=== PATIENT | male | born 1965 | race Caucasian/White ===

== ENCOUNTER 2018-01-21 14:36 | Emergency (ER) | payer SELFPAY ==
--- NOTE | 2018-01-21 14:39 | ER Report ---
History and Physical Time Seen By MD: 14:39 HPI/ROS CHIEF COMPLAINT: ALCOHOLIC CONSIDERING REHAB HISTORY OF PRESENT ILLNESS: Pt states "my brother brought me here to stop drinking". Pt states last drink was 20 minutes ago, [place] shot. Pt states he drinks about pint a day for 30 + years. Pt states last time he had a length of sobriety was 15 years ago. Pt states that he is not sure if he can stop. PT denies suicidal or homicidal ideations. pt denies any pain isor recent illness. REVIEW OF SYSTEMS: Constitutional: No fever, no chills. Eyes: No discharge. ENT: No sore throat. Cardiovascular: No chest pain, no palpitations. Respiratory: No cough, no shortness of breath. Gastrointestinal: No abdominal pain, no vomiting. Genitourinary: No hematuria. Musculoskeletal: No back pain. Skin: No rashes. Neurological: No headache. Allergies: Coded Allergies: No Known Drug Allergies (Unverified , 01/21/18) Home Meds No Active Prescriptions or Reported Meds Past Medical/Surgical History Pmhx: alcoholic Pshx: neg Hx Smoking: Yes Smoking Status: Current: Every Day Smoker Hx Substance Use Disorder: Yes (marijuania) Hx Alcohol Use: Yes Constitutional Vital Sign - Last 24 Hours 01/21/18 01/21/18 01/21/18 01/21/18 14:48 14:49 16:30 16:33 Temp 98.5 Pulse 76 Resp 16 B/P (MAP) 106/81 106/81 (89) 99/67 (78) 108/74 (85) Pulse Ox 91 O2 Delivery Room Air Physical Exam General Appearance: The patient is alert, has no immediate need for airway protection and no signs of toxicity. Eyes: Pupils equal and round no pallor or injection, EOMI ENT: no pharyngeal erythema or exudates, Mucous membranes are moist Respiratory: There are no retractions, lungs are clear to auscultation. Cardiovascular: Regular rate and rhythm. pulses are equal and symmetrical Gastrointestinal: Abdomen is soft and non tender, no masses, bowel sounds normal, no guarding, no rigidity or rebound Neurological: Cranial nerves II-XII grossly intact, no sensory or motor loss Skin: Warm and dry, no rashes. Musculoskeletal: Neck is supple non tender, no vertebral tenderness Extremities are nontender, non swollen and have full range of motion. DIFFERENTIAL DIAGNOSIS: After history and physical exam differential diagnosis was considered for electrolyte abnl, dehydration, intoxicated Medical Decision Making Data Points Result Diagram: 01/21/18 1504 01/21/18 1504 Laboratory Hematology Test 01/21/18 14:49 01/21/18 15:04 Urine Color Yellow Urine Clarity Slightly-cloudy Urine pH 6.0 pH (4.8-9.5) Urine Specific Vivian 1.019 Urine Protein Negative mg/dL (NEGATIVE) Urine Glucose (UA) Negative mg/dL (NEGATIVE) Urine Ketones Negative mg/dL (NEGATIVE) Urine Blood Negative (NEGATIVE) Urine Nitrite Negative (NEGATIVE) Urine Bilirubin Negative (NEGATIVE) Urine Urobilinogen Negative mg/dL (0.2-1.9) Urine Leukocyte Esterase Negative (NEGATIVE) Urine RBC <1 /HPF (0-2/HPF) Urine WBC <1 /HPF (0-5/HPF) Urine Squamous Epithelial Cells Few /LPF (</=FEW) Urine Calcium Oxalate Crystals Few /HPF (NONE) Urine Amorphous Crystals Few /HPF Urine Bacteria Negative /HPF (NONE-FEW) Urine Mucus None /HPF (NONE-FEW) Urine Opiates Screen Negative Urine Barbiturates Screen Negative Ur Tricyclic Antidepressants Screen Positive Urine Phencyclidine Screen Negative Urine Amphetamines Screen Negative Urine Benzodiazepines Screen Negative Urine Cocaine Screen Negative Urine Cannabinoids Screen Positive Red Blood Count 3.98 M/uL (4.00-5.60) Mean Corpuscular Volume 94.4 fL (80.0-96.0) Mean Corpuscular Hemoglobin 33.2 pg (26.0-33.0) Mean Corpuscular Hemoglobin Concent 35.2 g/dL (32.0-36.0) Red Cell Distribution Width 15.0 % (11.5-14.5) Mean Platelet Volume 7.4 fL (7.2-11.1) Neutrophils (%) (Auto) 47.9 % (39.4-72.5) Lymphocytes (%) (Auto) 30.7 % (17.6-49.6) Monocytes (%) (Auto) 14.3 % (4.1-12.4) Eosinophils (%) (Auto) 5.7 % (0.4-6.7) Basophils (%) (Auto) 1.4 % (0.3-1.4) Nucleated RBC Relative Count (auto) 0.0 /100WBC Neutrophils # (Auto) 4.7 K/uL (2.0-7.4) Lymphocytes # (Auto) 3.0 K/uL (1.3-3.6) Monocytes # (Auto) 1.4 K/uL (0.3-1.0) Eosinophils # (Auto) 0.5 K/uL (0.0-0.5) Basophils # (Auto) 0.1 K/uL (0.0-0.1) Nucleated RBC Absolute Count (auto) 0.00 K/uL Sodium Level 143 mmol/L (137-145) Potassium Level 4.2 mmol/L (3.5-5.0) Chloride Level 105 mmol/L (98-107) Carbon Dioxide Level 26 mmol/L (22-30) Blood Urea Nitrogen 18 mg/dl (9-21) Creatinine 0.90 mg/dl (0.66-1.25) Glomerular Filtration Rate Calc > 60.0 Random Glucose 98 mg/dl (75-110) Calcium Level 9.5 mg/dl (8.4-10.2) Magnesium Level 1.5 mg/dl (1.7-2.2) Total Bilirubin 0.1 mg/dl (0.2-1.3) Aspartate Amino Transf (AST/SGOT) 56 U/L (0-35) Alanine Aminotransferase (ALT/SGPT) 50 U/L (0-56) Alkaline Phosphatase 54 U/L (0-126) Total Protein 6.6 g/dl (6.3-8.2) Albumin 3.6 g/dl (3.5-5.0) Salicylates Level < 10 mg/L Salicylate Last Dose Date Unknown Acetaminophen Level < 10 ug/ml Serum Alcohol 365 mg/dl Chemistry Test 01/21/18 14:49 01/21/18 15:04 Urine Color Yellow Urine Clarity Slightly-cloudy Urine pH 6.0 pH (4.8-9.5) Urine Specific Vivian 1.019 Urine Protein Negative mg/dL (NEGATIVE) Urine Glucose (UA) Negative mg/dL (NEGATIVE) Urine Ketones Negative mg/dL (NEGATIVE) Urine Blood Negative (NEGATIVE) Urine Nitrite Negative (NEGATIVE) Urine Bilirubin Negative (NEGATIVE) Urine Urobilinogen Negative mg/dL (0.2-1.9) Urine Leukocyte Esterase Negative (NEGATIVE) Urine RBC <1 /HPF (0-2/HPF) Urine WBC <1 /HPF (0-5/HPF) Urine Squamous Epithelial Cells Few /LPF (</=FEW) Urine Calcium Oxalate Crystals Few /HPF (NONE) Urine Amorphous Crystals Few /HPF Urine Bacteria Negative /HPF (NONE-FEW) Urine Mucus None /HPF (NONE-FEW) Urine Opiates Screen Negative Urine Barbiturates Screen Negative Ur Tricyclic Antidepressants Screen Positive Urine Phencyclidine Screen Negative Urine Amphetamines Screen Negative Urine Benzodiazepines Screen Negative Urine Cocaine Screen Negative Urine Cannabinoids Screen Positive White Blood Count 9.7 k/uL (4.5-11.0) Red Blood Count 3.98 M/uL (4.00-5.60) Hemoglobin 13.2 g/dL (14.0-18.0) Hematocrit 37.6 % (42.0-52.0) Mean Corpuscular Volume 94.4 fL (80.0-96.0) Mean Corpuscular Hemoglobin 33.2 pg (26.0-33.0) Mean Corpuscular Hemoglobin Concent 35.2 g/dL (32.0-36.0) Red Cell Distribution Width 15.0 % (11.5-14.5) Platelet Count 182 K/uL (150-450) Mean Platelet Volume 7.4 fL (7.2-11.1) Neutrophils (%) (Auto) 47.9 % (39.4-72.5) Lymphocytes (%) (Auto) 30.7 % (17.6-49.6) Monocytes (%) (Auto) 14.3 % (4.1-12.4) Eosinophils (%) (Auto) 5.7 % (0.4-6.7) Basophils (%) (Auto) 1.4 % (0.3-1.4) Nucleated RBC Relative Count (auto) 0.0 /100WBC Neutrophils # (Auto) 4.7 K/uL (2.0-7.4) Lymphocytes # (Auto) 3.0 K/uL (1.3-3.6) Monocytes # (Auto) 1.4 K/uL (0.3-1.0) Eosinophils # (Auto) 0.5 K/uL (0.0-0.5) Basophils # (Auto) 0.1 K/uL (0.0-0.1) Nucleated RBC Absolute Count (auto) 0.00 K/uL Glomerular Filtration Rate Calc > 60.0 Calcium Level 9.5 mg/dl (8.4-10.2) Magnesium Level 1.5 mg/dl (1.7-2.2) Total Bilirubin 0.1 mg/dl (0.2-1.3) Aspartate Amino Transf (AST/SGOT) 56 U/L (0-35) Alanine Aminotransferase (ALT/SGPT) 50 U/L (0-56) Alkaline Phosphatase 54 U/L (0-126) Total Protein 6.6 g/dl (6.3-8.2) Albumin 3.6 g/dl (3.5-5.0) Salicylates Level < 10 mg/L Salicylate Last Dose Date Unknown Acetaminophen Level < 10 ug/ml Serum Alcohol 365 mg/dl Toxicology Test 01/21/18 14:49 01/21/18 15:04 Urine Opiates Screen Negative Urine Barbiturates Screen Negative Ur Tricyclic Antidepressants Screen Positive Urine Phencyclidine Screen Negative Urine Amphetamines Screen Negative Urine Benzodiazepines Screen Negative Urine Cocaine Screen Negative Urine Cannabinoids Screen Positive Salicylates Level < 10 mg/L Salicylate Last Dose Date Unknown Acetaminophen Level < 10 ug/ml Serum Alcohol 365 mg/dl Urinalysis Test 01/21/18 14:49 Urine Color Yellow Urine Clarity Slightly-cloudy Urine pH 6.0 pH (4.8-9.5) Urine Specific Vivian 1.019 Urine Protein Negative mg/dL (NEGATIVE) Urine Glucose (UA) Negative mg/dL (NEGATIVE) Urine Ketones Negative mg/dL (NEGATIVE) Urine Blood Negative (NEGATIVE) Urine Nitrite Negative (NEGATIVE) Urine Bilirubin Negative (NEGATIVE) Urine Urobilinogen Negative mg/dL (0.2-1.9) Urine Leukocyte Esterase Negative (NEGATIVE) Urine RBC <1 /HPF (0-2/HPF) Urine WBC <1 /HPF (0-5/HPF) Urine Squamous Epithelial Cells Few /LPF (</=FEW) Urine Calcium Oxalate Crystals Few /HPF (NONE) Urine Amorphous Crystals Few /HPF Urine Bacteria Negative /HPF (NONE-FEW) Urine Mucus None /HPF (NONE-FEW) ED Course/Re-evaluation Clinical Indication for ER IV: Hydration, IV Access ED Course check labs 01/21/2018 4:29:40 pm Pts magnesium is low. will replace with a banana bag. 01/21/2018 4:46:31 pm Pt initially was unsure if he wanted to go get help but now states that he wants to be admitted for detox. will have bhs come down to speak with pt. 01/21/2018 5:09:[address] Love who accepts the patient if he decides to stay. Decision to Disposition Date: Jan 21, 2018 Decision to Disposition Time: 17:10 Depart Departure Latest Vital Signs Vital Signs Date Time Temp Pulse Resp B/P (MAP) Pulse Ox O2 Delivery O2 Flow Rate FiO2 01/21/18 16:33 108/74 (85) 01/21/18 14:48 98.5 76 16 91 Room Air Impression: Primary Impression: Alcohol abuse with intoxication Additional Impressions: Hypomagnesemia Cannabis use, unspecified, uncomplicated Condition: Condition Unchanged Disposition: XFER TO [facility] UNIT New Scripts No Active Prescriptions or Reported Meds Problem Qualifiers MANUEL KELLEY DO Jan 21, 2018 14:39
[2018-01-21 15:23] LABS: PLATELET COUNT, AUTOMATED 182 K/uL (150-450)
[2018-01-21] MEDS ORDERED: MULTIVITAMINS(*) 10 ML VIAL 10 ML, THIAMINE HCL(*) 200 MG/2 ML IN 100 MG, FOLIC ACID(*)... IV ONE (16:15)
[2018-01-21] MEDS ORDERED: NICOTINE 21 MG/24 HR PATCH TD ONE (16:30)
[2018-01-21] MEDS ORDERED: LORazepam 2 MG/ML VIAL IVP ONE (17:15)
[2018-01-21 17:30] VITALS: BP 105/70
[2018-01-22] MEDS ORDERED: FOLI-68 PO (16:21)
[2018-01-22] MEDS ORDERED: NICO-218 TD (16:24)
[2018-01-22] MEDS ORDERED: MULT-859 PO (16:24)
[2018-01-22] MEDS ORDERED: THIA100T58 PO (16:25)
== END 2018-01-21 17:45 ==
LOC: ER 14:51
DX: F10.229 Alcohol dependence with intoxication, unspecified (principal); F12.90 Cannabis use, unspecified, uncomplicated; E83.42 Hypomagnesemia
CPT/HCPCS: 36415; 80305; 80320; 80329; 81001; 83735; 84443; 85025; 96365; 96375; 99283; J2060; J3411; J3475; J7030; 82040; 82247; 82310; 82374; 82435; 82565; 82947; 84075; 84132; 84155; 84295; 84450; 84460; 84520

== ENCOUNTER 2018-01-21 17:18 | Inpatient (IN) | payer SELFPAY ==
[~2018-01-21] VITALS: Ht 167.6 cm; Wt 65.3 kg
[2018-01-21] MEDS ORDERED: MAG HYD/AL HYD/SIMETH 30ML UDC PO PRN (17:35)
[2018-01-21 18:10] VITALS: BP 103/80
[2018-01-21 21:21] VITALS: BP 149/98
[2018-01-22 00:18] VITALS: BP 142/76
[2018-01-22] MEDS: DIAZEPAM 10 MG TAB PO PRN ×2 (00:35→06:20)
[2018-01-22] MEDS ORDERED: IBUPROFEN 200 MG TAB PO ONE (05:45)
[2018-01-22] MEDS ORDERED: NICOTINE 21 MG/24 HR PATCH TD SCH (09:00)
[2018-01-22] MEDS ORDERED: MULTIVITAMINS TAB PO SCH (09:00)
[2018-01-22] MEDS ORDERED: FOLIC ACID 1 MG TAB PO SCH (09:00)
[2018-01-22] MEDS ORDERED: THIAMINE HCL 100 MG TAB PO SCH (09:00)
[2018-01-22 09:30] VITALS: BP 141/93
[2018-01-22 13:40] VITALS: BP 141/90
--- NOTE | 2018-01-22 14:46 | HISTORY AND PHYSICAL ---
DATE OF ADMISSION: January 21, 2018 CHIEF COMPLAINT "My brother thought I had a little too much to drink, so I came down." HISTORY OF PRESENT ILLNESS This is the first ever psychiatric or detox admission for this voluntary patient who is a 52-year-old male, currently living in [place], [place]. The patient has a long history of alcohol use disorder over the past 30 years. He has most recently been drinking either a pint a day, or if he does not have alcohol, he will drink a bottle of NyQuil per day. His brother found him to be significantly intoxicated yesterday and apparently has been pushing him to seek rehab treatment, and so his brother brought him to the Emergency Room. In the ER, the patient's blood alcohol level was 365. The patient was treated for low magnesium with banana bag and was voluntarily admitted to [facility] for alcohol detox. On interview today, the patient is stating that he is not interested in rehab treatment at this time, but is willing to stay in the hospital to complete detox. The patient says he has been drinking for 30 years. He did quit for five years, and he started drinking again this past November. 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 He then moved back to [place] where he lives in his camper on the property of a friend's home. The patient says that he would go to rehab, but he has bills and would prefer to go back to [place] and get back to work so he can pay his bills. The patient does state that he has attended AA meetings in [place] in the past, and he intends to return to these. PAST PSYCHIATRIC HISTORY Negative. He has never had any outpatient treatment, nor has he ever had a detox or a rehab admission. FAMILY PSYCHIATRIC HISTORY His father was an alcoholic, and his brother abuses marijuana. There is no other family psychiatric history known. PAST SURGICAL HISTORY * He has had arthroscopic knee surgery in the distant past. * PAST MEDICAL HISTORY * He suffers from seasonal allergies. SOCIAL HISTORY He was born and raised in [place], [place]. His parents were at the time of his . They when he was about [age] years old. He has three brothers, one sister, and two half-sisters. He is a high school graduate. He has never served in the . He has had no college. 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 He denies any history of physical or sexual abuse. LEGAL HISTORY He has had three DUIs in his lifetime and was once charged with trespassing. He has never spent time in shelter. He does have an upcoming court appearance in [place] in the future due to a recent DUI in November. SUBSTANCE ABUSE HISTORY The patient has been a fairly heavy drinker for 30 years. He did have one five- year period of sobriety. The patient also uses marijuana occasionally, but alcohol is his drug of choice. The patient is a heavy cigarette smoker. PHYSICAL EXAMINATION Please see the emergency room physician's report. VITAL SIGNS: Temperature 99.5, pulse 75, respiratory rate 18, blood pressure 103/80, pulse ox is 96% on 2L by nasal cannula. LABORATORY DATA CBC: Hemoglobin 13.2, low. Hematocrit 37.6, low. Platelet count 182. MCV 94.4. Chemistry panel is within normal limits other than a magnesium which was low at 1.5. This was replaced in the Emergency Room. Total bilirubin is low at 0.1. AST is slightly elevated at 56. ALT is normal at 50. TSH is pending. Urinalysis is within normal limits. Tox screen is negative for salicylates, negative for acetaminophen, positive for tricyclics, and positive for cannabinoids. Tricyclics are likely explained by the NyQuil. Serum alcohol was 365. MENTAL STATUS EXAMINATION The patient was mildly disheveled. He was cooperative and displayed good eye contact. He did not appear to be tremulous or showing any evidence of alcohol withdrawal at the time of our interview. Speech was normal in rate, tone, and volume. Mood and affect were euthymic. Thought process was logical and goal directed. Thought content was negative for suicidal ideation, homicidal ideation, auditory hallucinations, visual hallucinations, and delusions. He was alert and fully oriented to person, place, time, and situation. Memory was intact for immediate, recent, and remote recall. Intelligence was average based on interview. Insight and judgment are fair. ASSESSMENT * Alcohol use disorder, severe. * Specific substance use disorder, severe, specifically NyQuil. * Nicotine use disorder, severe. PLAN He will be admitted to [facility]. He will be maintained on a CIWA protocol, using Valium to treat any withdrawal symptoms. He will attend individual and group therapy. Medications will be adjusted as indicated. We have encouraged the patient to consider rehab admission, and we spent time today educating him about the availability of rehab here in [place], even for patients who think that they cannot afford it, and he will give this consideration. [*] OSWALDOD
[2018-01-22] MEDS ORDERED: FOLI-68 PO (16:21)
[2018-01-22] MEDS ORDERED: NICO-218 TD (16:24)
[2018-01-22] MEDS ORDERED: MULT-859 PO (16:24)
[2018-01-22] MEDS ORDERED: THIA100T58 PO (16:25)
[2018-01-22 17:25] VITALS: BP 149/94
--- NOTE | 2018-01-23 15:50 | BHS Discharge Summary ---
[facility] Discharge Summary [id number] Encounter Date: Jan 22, 2018 Tptj-[id number] Encounter Time: 16:00 Reason-Hosp/Final Diag (DSM-V): (1) Alcohol abuse with intoxication Status: Acute Hospital Course & Plan: Pt was admitted for alcohol and nyquil abuse, for a detox. He never scored very high on the CIWA during the less than 24 hours he was here. He did receive valium 20 mg the first night at bedtime, he received valium 10 early in the morning of 01/22. He was cooperative, never a problem, and was never particularly ill-appearing. When we met in the morning for his intake he explained that he did not want to transfer to a rehab facility after detox. He agreed at first to stay over night to make sure CIWA scores remained low, but by that evening he was requesting discharge and a friend came to pick him up. (2) Cannabis use, unspecified, uncomplicated Status: Acute Physical Exam Latest Vital Signs Vital Signs 01/22/18 01/22/18 00:18 17:25 Temp 98.6 Pulse 62 Resp 18 B/P (MAP) 149/94 (112) Pulse Ox 97 O2 Delivery Room Air O2 Flow Rate 2.0 Mental Status Exam General Appearance: Casual, Well Groomed, Good Eye Contact, Cooperative, Polite , Good Interaction Speech: Clear, Spontaneous, Normal Rate, Normal Rhythm, Normal Volume, Normal Tone Mood: Euthymic Affect: Full and Appropriate, Calm Thought Process: Organized, Logical, Goal Directed Thought Content: No Suicidal Ideation, No Homicidal Ideation, No Delusions, No Auditory Halllucinations, No Visual Hallucinations, No Thought Broadcasting, No Ideas of Reference, No Obsessions, No Compulsions, No Other Sensorium: Clear Cognition: Alert & Oriented-Person, Alert & Oriented-Place, Alert & Oriented- Time, [id number] Memory: Immediate, Recent, Remote Intelligence: Average Insight Judgment: Fair Departure Condition: Improved Discharge to: Home Discharge Instructions Home Meds Reported Medications Thiamine Hcl (VITAMIN B-1) 100 Mg Tablet, 100 MG PO DAILY 01/22/18 Multivits,Ca,Minerals/Iron/Fa (THERA-M TABLET) 1 Each Tablet, 1 EACH PO DAILY 01/22/18 Nicotine (NICODERM CQ) 1 Each Patch.td24, 1 EACH TD DAILY 01/22/18 Folic Acid (FOLIC ACID) 1 Mg Tablet, 1 MG PO QDAY, TAB 01/22/18 Multpiple Antipsychotics Used: No Diet: Regular Special Instructions: Discharge home. Follow up with outpatient therapy and AA. ABSTAIN FROM ALCOHOL AND ALL ILLICIT. MARIELA THOMAS MD Jan 23, 2018 15:50
== END 2018-01-22 18:42 | disposition home or self-care (01) | DRG 897 ==
LOC: BHS 17:18
PROVIDERS: ADMIT Psychiatry & Neurology Psychiatry; ATTEND Psychiatry & Neurology Psychiatry
DX: F10.220 Alcohol dependence with intoxication, uncomplicated (principal); F12.90 Cannabis use, unspecified, uncomplicated; F17.210 Nicotine dependence, cigarettes, uncomplicated; Y90.8 Blood alcohol level of 240 mg/100 ml or more